=== PATIENT | female | born 1990 | race Caucasian/White ===

== ENCOUNTER 2021-06-07 09:58 | Outpatient (CLI) | payer OTHER, SELFPAY ==
[2021-06-07 10:50] LABS: Vitamin D,25 Hydroxy 22.2 ng/mL
[2021-06-07 10:56] LABS: T4 Free Direct 1.01 ng/dL (0.76-1.46); Thyroid Stim Hormone (TSH) 1.59 uIU/mL (0.358-3.74)
[2021-06-09 15:00] LABS: HPV APTIMA, High Risk Negative (Negative)
== END 2021-06-07 23:59 | disposition short-term general hospital (02) ==
PROVIDERS: PCP Nurse Practitioner Family; Referring Provider Nurse Practitioner Women's Health; Visit Provider Nurse Practitioner Women's Health
DX: Z13.29 Encounter for screening for other suspected endocrine disorder (principal); R63.5 Abnormal weight gain; L65.9 Nonscarring hair loss, unspecified; Z78.0 Asymptomatic menopausal state
CPT/HCPCS: 36415; 82306; 84439; 84443; 87624; 88175; G0145

== ENCOUNTER 2024-06-07 23:19 | Emergency (ER) | payer SELFPAY ==
[2024-06-07 23:21] VITALS: BP 120/73; PULSE 77; RESP 18; TEMP 36.3; O2SAT 96; BMI 37.0
--- NOTE | 2024-06-07 23:56 | ED.VIS.GI ---
HPI HPI - GI History of Present Illness Chief Complaint: Abd Pain Informant: patient Narrative Narrative: 33-year-old female awoke with severe upper abdominal pain, seems centered in the epigastrium, but radiating around her abdomen into her back bilaterally as well. Has been colicky. Associated with some belching but no nausea or vomiting. Almost makes it hard to take a breath because the pain was so severe although it let up on the way here and now it is severe again. She tried taking some Tums but it did not help anything, she has had some reflux in the past and some trouble swallowing and is scheduled for endoscopy at some point in the near future, but states she has never had discomfort like this before. She has had prior C-sections no other abdominal surgeries still has her gallbladder. No alcohol tonight, she states she does not drink. [facility] [place] Medical History Anemia Depression Dysphagia Seasonal allergies Anxiety Home Medications ?Medication ?Instructions ?Recorded ?Last Taken ?Type cetirizine 10 mg capsule (Zyrtec) 10 mg PO DAILY PRN allergies 06/07/21 Unknown History fluticasone propionate 50 1 spray intranasal DAILY PRN 06/07/21 Unknown History mcg/actuation nasal allergy symptoms spray,suspension multivitamin (Daily Multi-Vitamin 1 tab PO DAILY 06/07/24 Unknown History tablet) omeprazole 20 mg capsule,delayed 20 mg PO BID 06/07/24 Unknown History release Allergy/AdvReac Type Severity Reaction Status Date / Time nickel Allergy Other Verified 06/07/24 23:24 Family History (Updated 06/07/21 @ 09:34 by Dede Markham) Mother Hypertension Grandmother Thyroid disorder Diabetes Surgical History S/P Social History household members: spouse and children number of children: 2 current occupational status: employed current occupation: [employer] Smoking Status: Former smoker alcohol intake: never substance use type: does not use what type of physical activity do you participate in: walking and bicycling frequency: 3-4 times per week seatbelt use: always do you feel safe at home: Yes additional social history: - Tung ROS ROS ED Constitutional Constitutional ED: Denies chills or fever(s) Eyes Eyes: Denies change in vision or diplopia ENT ENT ED: Denies rhinorrhea or sore throat Cardiovascular Cardiovascular: Denies chest pain or palpitations Respiratory/Chest Respiratory/Chest: Denies cough or dyspnea Gastrointestinal Gastrointestinal: Reports abdominal pain; Denies diarrhea, melena, nausea or vomiting Genitourinary Genitourinary ED: Denies dysuria or hematuria Musculoskeletal Musculoskeletal: Reports back pain; Denies neck pain Integumentary Denies abscess or rash Neurologic Neurologic: Denies headache(s), paresthesias or weakness EXAM Physical Exam Const Vital Signs: 06/07/24 23:21 Temperature 97.3 F L Temperature Source Oral Pulse Rate 77 Respiratory Rate 18 Blood Pressure 120/73 Blood Pressure Mean 88 Pulse Ox 96 Oxygen Delivery Method Room Air Positive well nourished and well developed General Appearance ED: well developed and NAD HEENT Reports moist mucous membranes normocephalic and atraumatic Eyes PERRL and EOMs intact bilaterally Neck full ROM and supple Resp normal respiratory effort and clear to auscultation bilaterally Cardio regular rate, regular rhythm and no murmurs GI non-distended GI Narrative: Tender across upper abdomen without guarding or rebound or pulsatile mass. Normal inspection. Auscultation: normoactive bowel sounds Palpation: soft Back/Spine no CVA tenderness General Back: other FROM Extremity normal to inspection General Extremety ED: Negative for edema, pulses abnormal or tenderness General Extremity: Negative for edema or pulses abnormal Neuro oriented x3, CN's II-XII intact bilaterally, no sensory deficits noted and gait normal Sensorium / Orientation: awake and alert Motor Exam: strength 5/5 throughout Psych Mood & Affect: anxious Skin no rashes or lesions noted and no wounds MDM MDM MDM Narrative Medical decision making narrative: Given the patient's symptoms, and the fact that she has never had pain like this before but has been having upper GI issues that have improved after taking daily omeprazole, I am suspicious this could be biliary colic. 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 Therefore she was given Zofran, morphine, Toradol, after which she is feeling much better, sent labs which are noted and unremarkable including a negative ruling out ectopic, and I did a bedside ultrasound of the gallbladder. Her sonographic Carrizales's negative, I see 1 area that could be a shadowing stone versus polyp, but it is not in the neck of the gallbladder, and the gallbladder wall is 0.2 cm within normal limits. This is inconsistent with acute cholecystitis, as are her labs. However since I am not able to say definitively, I sent her for CT of the abdomen/pelvis with IV contrast. I reviewed the images and report which I agree with. There is no radiographic signs of acute cholecystitis/pericholecystic fluid, and although it is not sensitive for gallstones, no calcified gallstones were seen. On reevaluation the patient is asymptomatic and doing very well. Therefore I do not think she has acute cholecystitis, it is possible she has biliary colic, it is also possible this is all upper GI in nature. Luckily no sign of a perforation of stomach or intestine on the CT, so at this time I think she is stable for discharge home and I am ordering her an outpatient ultrasound with the results to be sent to her PCP and the patient advised to follow-up afterwards for reevaluation and referral if needed. In the meantime, I am advising her with regards to diet without fat to hopefully avoid further episodes if biliary in nature. She is comfortable with that plan. Lab Data Attestation: I reviewed the patient's lab results. Labs: Laboratory Results - last 24 hr 06/08/24 06/08/24 00:03 00:09 WBC 10.2 RBC 4.63 Hgb 13.9 Hct 39.0 MCV 84.2 MCH 30.0 MCHC 35.6 RDW Std Deviation 36.1 RDW Coeff of Tangela 12.0 Plt Count 215 MPV 10.1 Immature Gran % (Auto) 0.400 Neut % (Auto) 58.9 Lymph % (Auto) 30.4 [place] % (Auto) 6.4 Eos % (Auto) 3.4 Baso % (Auto) 0.5 Absolute Neuts (auto) 6.0 Absolute Lymphs (auto) 3.11 Nucleated RBC % 0 Sodium 139 Potassium 3.8 Chloride 107 Carbon Dioxide 25.0 Anion Gap 8 BUN 12 Creatinine 0.80 Estim Creat Clear Calc 107.53 Est GFR (MDRD) Af Amer 104 Est GFR (MDRD) Non-Af 86 BUN/Creatinine Ratio 14.9 Glucose 125 H Calcium 9.0 Total Bilirubin 0.30 AST 37 ALT 34 Alkaline Phosphatase 77 Total Protein 7.3 Albumin 3.5 Globulin 3.8 Albumin/Globulin Ratio 0.9 Lipase 51 Serum , Qual NEGATIVE Urine Color Yellow Urine Clarity Sl. Cloudy Urine pH 7.0 Ur Specific [place] 1.015 Urine Protein Negative Urine Glucose (UA) Normal Urine Ketones Negative Urine Occult Blood 150 H Urine Nitrite Negative Urine Bilirubin Negative Urine Urobilinogen Normal Ur Leukocyte Esterase Negative Urine RBC 5-10 SEEN Urine WBC 0 SEEN Ur Squamous Epith Cells 10-25 SEEN Amorphous Sediment 1+ Urine Bacteria 2+ Urine Mucus RARE Radiography Diagnostic Testing: Clinical Impression(s) from Imaging Studies Abdomen/Pelvis CT 06/08/24 00:50 IMPRESSION: 1. No acute intra-abdominal process identified. 2. Subtle tiny hypodensity within the right hepatic lobe measures 3 mm, too small to accurately characterize, likely representing a tiny cyst. 3. No calcifications or obstructive uropathy involving the bilateral collecting systems. 4. Follicular changes suspected of the bilateral ovaries. 5. No bowel obstruction. Appendix is negative. 6. Additional findings, as detailed above One or more dose reduction techniques were used (e.g., Automated exposure control, adjustment of the mA and/or kV according to patient size, use of iterative reconstruction technique). Reading [facility] Dis[facility] Triage Chief Complaint: Abd Pain ED Provider: Sahil Lucas Dx/Rx/DC Orders Clinical Impression: Acute upper abdominal pain Instructions: ED Abdominal Pain Gallstone Poss Prescriptions: No Action Zyrtec 10 mg capsule 10 mg PO DAILY PRN (Reason: allergies) fluticasone propionate 50 mcg/actuation spray,suspension 1 spray intranasal DAILY PRN (Reason: allergy symptoms) Rx Instructions: administer into each nostril omeprazole 20 mg capsule,delayed release(DR/EC) 20 mg PO BID multivitamin [Daily Multi-Vitamin] Tablet 1 tab PO DAILY Other Ambulatory Orders: Gallbladder (Routine) Timeframe: 1 Week [place] [facility] [place] [facility] Ordered By: Dr. Sahil Lucas Primary Care Provider: DIMAS ORTA Referrals: DIMAS ORTA CRNP [Primary Care Provider] - (after u/s obtained) Print Language: Irish Disposition Disposition: Home, Self Care
[2024-06-07] MEDS: Ondansetron 4 MG/2 ML Vial IV (23:59)
[2024-06-08] MEDS: Ketorolac 30 MG/ML Syringe IV
[2024-06-08] MEDS: Morphine 4 MG/ML Syringe IV
[2024-06-08 00:15] LABS: Absolute Lymphocyte Count 3.11 X10^3/uL (0.83-4.51); Basophil# 0.05 X10^3/uL; Basophil% 0.5 % (0-1); Eosinophil# 0.35 X10^3/uL; Eosinophils% 3.4 % (0-5); Hemoglobin 13.9 g/dL (12.0-15.0); Lymphocyte # 3.11 X10^3/ul (0.83-4.51); Lymphocyte % 30.4 % (19-41); Mean Corp Hgb Conc 35.6 g/dL (32-36); Mean Corpuscular Volume 84.2 fL (81-99); Mean Platelet Vol. 10.1 fl (6.2-12.0); Monocyte# 0.65 X10^3/uL; Monocyte% 6.4 % (0-10); NRBC Flagged by Analyzer 0 % (0-5); Neutrophil # 6.03 X10^3/uL (2.7-7.7); Neutrophil % 58.9 % (47-70); Platelet Count 215 K/mm3 (150-450); RBC Distribution Width SD 36.1 fl (35.1-43.9); Red Blood Count 4.63 M/mm3 (4.2-5.4); White Blood Count 10.2 K/mm3 (4.4-11.0)
[2024-06-08 00:19] LABS: White Blood Cells 0 SEEN /hpf (0-5)
[2024-06-08 00:25] LABS: Color, Urine Yellow (Yellow); Glucose, Dipstick Normal (Normal); Ketone-Dipstick Negative (Negative); Leukocyte Esterase-Dipstick Negative /ul (Negative); Nitrite-Dipstick Negative (Negative); Occult Blood-Urine 150 /ul (Negative); Protein-Dipstick Negative (Negative); Specific Gravity, Urine 1.015 (1.002-1.030); Urine Bilirubin Dipstick Negative (Negative); Urine Clarity Sl. Cloudy (Clear); Urine Urobilinogen Normal (Normal)
[2024-06-08 00:33] LABS: Internal QC Validated? YES +Cl - CLEAR BKGD; Pregnancy, Serum, hCG Quali. NEGATIVE Negative
[2024-06-08 00:46] LABS: ALB/GLOB Ratio 0.9 RATIO (0.9-2.4); AST(SGOT) 37 U/L (15-37); Alanine Aminotransfer ALT/SGPT 34 U/L (13-56); Albumin, Serum 3.5 g/dL (3.2-5.0); Alkaline Phosphatase 77 U/L (45-117); Anion Gap 8 (5-15); BUN 12 mg/dL (7-18); BUN/Creat Ratio 14.9 RATIO (10-20); Chloride 107 mmol/L (98-107); EST Glomerular Filtration Rate 86 mL/min (>60); Est Glom Filt Rate - Afr Amer 104 mL/min (>60); Estimated Creatinine Clearance 107.53 ml/min; Globulin 3.8 g/dL (2.2-4.2); Glucose 125 mg/dL (74-106); Lipase 51 U/L (13-75); Potassium 3.8 mmol/L (3.5-5.1); Protein, Total 7.3 g/dL (6.4-8.2); Sodium Level 139 mmol/L (136-145)
--- NOTE | 2024-06-08 00:50 | CT_ITS ---
PROCEDURE: ABDOMEN/PELVIS W IV CONT ONLY REASON FOR EXAM: Upper abdominal pain. TECHNIQUE: Axial CT images of the abdomen and pelvis was performed with IV contrast enhancement. Sagittal and coronal reconstructed images were performed for better visualization of the horizontal structures. 98 mL of Isovue-300 was utilized. COMPARISON: None. FINDINGS: Lung bases: Trace atelectasis within the left lung base. No hiatal hernia. Moderate amounts of debris seen within the stomach. Liver: Subtle tiny hypodensity within the right hepatic lobe measures 3 mm, too small to accurately characterize likely representing a tiny cyst. No enhancing masses are identified. Gallbladder: Moderately distended gallbladder. No calcified gallstones. No pericholecystic inflammation. Spleen: Homogeneous enhancement. No splenomegaly. Pancreas: Unremarkable. Adrenals: No adrenal masses are identified. Kidneys: Kidneys enhance symmetrically. No calcifications or obstructive uropathy involving the bilateral collecting systems. Bladder: Decompressed. No bladder calculi are seen. Reproductive Organs: Uterus is slightly lobulated. Follicular changes suspected of the bilateral ovaries . Bowel: No bowel obstruction is identified. Moderate amounts of fecal retention. No pericolonic inflammatory changes. Appendix: Normal. Lymph nodes: No suspicious lymph node enlargement. Vasculature: Major vascular structures are unremarkable. Peritoneum / Retroperitoneum: No ascites. No free air. Bones: Osseous structures about the abdomen and pelvis are intact. CT/Abdomen/Pelvis W IV Cont ONLY IMPRESSION: 1. No acute intra-abdominal process identified. 2. Subtle tiny hypodensity within the right hepatic lobe measures 3 mm, too sma ll to accurately characterize, likely representing a tiny cyst. 3. No calcifications or obstructive uropathy involving the bilateral collecting systems. 4. Follicular changes suspected of the bilateral ovaries. 5. No bowel obstruction. Appendix is negative. 6. Additional findings, as detailed above One or more dose reduction techniques were used (e.g., Automated exposure contr ol, adjustment of the mA and/or kV according to patient size, use of iterative reconstruction technique). Reading Location: [facility]
[2024-06-08 00:58] LABS: Amorphous Sediment 1+; Bacteria 2+ /hpf (None Seen); Mucous, Urine RARE /hpf (<or=2+); Red Blood Cells-Urine 5-10 SEEN /hpf (0-5); Squamous Epithelial Cells - UA 10-25 SEEN /hpf (5-10)
[2024-06-08 01:53] VITALS: BP 129/66; PULSE 100; RESP 18; TEMP 36.6; O2SAT 98
== END 2024-06-08 01:57 | disposition home or self-care (01) ==
PROVIDERS: Emergency Provider Emergency Medicine; PCP Nurse Practitioner Adult Health; Visit Provider Emergency Medicine
DX: R10.11 Right upper quadrant pain (principal); R10.12 Left upper quadrant pain; Z87.891 Personal history of nicotine dependence
CPT/HCPCS: 74177; 80053; 81001; 83690; 84703; 85025; 96374; 96375; 99285; Q9967; A4216; J2405

== ENCOUNTER 2024-07-16 14:04 | Day surgery (SDC) | payer OTHER, SELFPAY ==
[2024-07-16] VITALS (8 sets, daily range): BP systolic 111–129; BP diastolic 73–84; PULSE 89–98; RESP 16; TEMP 36.2–36.8; O2SAT 95–100; BMI 36.3
[2024-07-16 15:01] LABS: Internal QC Validated? YES +Cl - CLEAR BKGD; Pregnancy, Urine Negative Negative
--- NOTE | 2024-07-16 15:15 | EGD_PTH ---
PATIENT: ANDREE MURDOCK LOC: EN U#:[id number] AGE/SX: 33/F ROOM: RE07/16/[address]: Dr. Garry Mensah DO : 1990 BED: DIS: 07/16/2024 SPEC #: [id number] RECD: 07/17/24 11:15 STATUS: CLARY MOLLY #: [id number] CALLIE: 07/16/24 15:[address]: Garry Mensah DEPT: SURGICAL PATHOLOGY RECD BY: Rakesh Reyez ENTERED: 07/17/24 11:15 SP TYPE: EGD BIOPSY OT DR: MAVIS LERNER Tissues: A - Esophagus, NOS B - Esophagus, NOS C - Gastric mucous membrane Procedures: Surgery Specimen Level IV HEADER OPERATION: EGD with biopsy and dilatation PRE-OP DIAGNOSIS: Dysphagia TISSUE SUBMITTED: A- Distal esophagus biopsy, B- Random esophagus biopsy, C- Gastric body biopsy MICROSCOPIC DIAGNOSIS A: DISTAL ESOPHAGUS, BIOPSY: * Squamous mucosa with reactive changes. * Columnar mucosa negative for goblet cell metaplasia. B: RANDOM ESOPHAGUS, BIOPSY: * Squamous mucosa negative for eosinophils. C: STOMACH, BODY, BIOPSY: * Oxyntic mucosa with features of reactive gastropathy. * Negative for Helicobacter-like organisms (H&E). MICROSCOPIC DESCRIPTION Slides are reviewed. GROSS DESCRIPTION A. Received in fixative is one container labeled with the patient's name and designated Distal esophagus biopsy. The specimen consists of two irregular fragments of light aggarwal soft tissue that in aggregate measure 0.7 x 0.2 x 0.2 cm. The specimen is totally submitted in one cassette. B. Received in fixative is one container labeled with the patient's name and designated Random esophagus biopsy. The specimen consists of two irregular fragments of light aggarwal soft tissue that in aggregate measure 1.7 x 0.2 x 0.2 cm. The specimen is totally submitted in one cassette. C. Received in fixative is one container labeled with the patient's name and designated Gastric body biopsy. The specimen consists of multiple irregular fragments of light aggarwal soft tissue that in aggregate measure 1.2 x 0.2 x 0.3 cm. The specimen is totally submitted in one cassette. 07/17/2024 CPT:43122r7
--- NOTE | 2024-07-16 15:29 | PCM.PRE.AN2 ---
ASA Classification* ASA Classification ASA Classification: 2 Assessment & Plan Anesthesia* Anesthesia Assessment Anesthesia Assessment: Discussed sedation and/or anesthesia options, risks, benefits, and alternatives with patient/parents/legal guardian/POA. Questions invited. The patient/parents/legal guardian/POA seems to understand and agrees to proceed with anesthesia plan. Reviewed the physical assessment, medical history, allergy history and patient home medications list prior to surgery/procedure/anesthetic and documented any changes. Performed airway and anesthesia risk assessments. Anesthesia Type Anesthesia Type: General History Source History Obtained from:: Patient and Chart Anesthesia Focused Assessment* Temperature: 98.3 F Pulse Rate: 89 Blood Pressure: 129/73 Respiratory Rate: 16 Pulse Ox: 100 Oxygen Delivery Method: Room Air Airway Assessment Mouth opens: >3 cm Mallampati Score: II Teeth Condition: Intact and Missing (upper right) Neck Range of motion (ROM): Full ROM Focused Labs Anesthesia Preop lab: CBC WBC 10.2 K/mm3 (4.4-11.0) 06/08/24 00:03 06/08/24 RBC 4.63 M/mm3 (4.2-5.4) 06/08/24 00:03 06/08/24 Hgb 13.9 g/dL (12.0-15.0) 06/08/24 00:03 06/08/24 Hct 39.0 % (37-47) 06/08/24 00:03 06/08/24 Plt Count 215 K/mm3 (150-450) 06/08/24 00:03 06/08/24 CHEMISTRY Potassium 3.8 mmol/L (3.5-5.1) 06/08/24 00:03 06/08/24 Sodium 139 mmol/L (136-145) 06/08/24 00:03 06/08/24 BUN 12 mg/dL (7-18) 06/08/24 00:03 06/08/24 Creatinine 0.80 mg/dL (0.55-1.02) 06/08/24 00:03 06/08/24 Glucose 125 mg/dL (74-106) H 06/08/24 00:03 06/08/24 TSH 1.59 uIU/mL (0.358-3.74) 06/07/21 10:05 06/07/21 COAG Urine Test Negative Negative 07/16/24 14:12 07/16/24 Pre-Assessment Diagnosis/Proposed Procedure Planned Operative Procedure(s): EGD Anesthesia History Anesthesia History - 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 When Was Last Pacemaker Check QUESTION #4 FULL TEXT: You/Your Family Experience fever (hyperthermia) with Anesthesia Any additional information?: No Last Oral Intake Last Oral intake: Last Oral Intake NPO since 23:30 07/16/24 14:20 Meds taken in AM with sips of No 07/16/24 14:20 water? Meds patient instructed to take am of surgery Any additional information?: No PONV PONV - competitive intelligence analyst: PONV - competitive intelligence analyst Female Yes 07/11/24 11:42 HX of Motion Sickness No 07/11/24 11:42 HX of N/V After Surgery No 07/11/24 11:42 Non-Smoker Yes 07/11/24 11:42 Duration of Surgery greater No 07/11/24 11:42 than 60 minutes Number of Risk Factors 2 07/11/24 11:42 PONV Score Moderate Risk 07/11/24 11:42 Any additional information?: No Height & Weight Height & Weight: Anesthesia: Height & Weight Height 5 ft 2 in 07/16/24 14:20 Weight: 90 kg 07/16/24 14:20 Body Mass Index (BMI) 36.3 07/16/24 14:20 Respiratory Assessment Respiratory Assessment - competitive intelligence analyst: Respiratory Tract Infection Hx - competitive intelligence analyst Hx Respiratory Tract Infection No 07/11/24 11:42 Any additional information?: No STOP Sleep Apnea STOP Sleep Apnea - competitive intelligence analyst: STOP Sleep Apnea - competitive intelligence analyst Hx Hypertension No 07/11/24 11:42 Hx Sleep Apnea No 07/11/24 11:42 CPAP BIPAP Do you snore loudly (louder No 07/11/24 11:42 than talking or can be heard Do you often feel tired/ No 07/11/24 11:42 fatigued/ sleepy during daytime? Has anyone observed you stop No 07/11/24 11:42 breathing during sleep? STOP Results Negative 07/11/24 11:42 QUESTION #5 FULL TEXT : Do you snore loudly (louder than talking or can be heard through closed doors)? Any additional information?: No Tobacco Use History Tobacco Use History - competitive intelligence analyst: Tobacco Use History - competitive intelligence analyst Tobacco Use Smoking Status Former smoker 07/11/24 11:42 Hx Tobacco Use Yes 07/11/24 11:42 Years Smoking Packs Smoked per Day Smoking Cessation Date was Yes - quit smoking within 15 07/11/24 11:42 within the last 15 years years Hx Smoking Cessation Date Hx Smoking Cessation Counseling Any additional information?: No Hematologic Medial History Hematologic Hx - competitive intelligence analyst: Hematologic Medical Hx - cat sitter Hx of Blood Transfusion No 07/11/24 11:42 Hx of Transfusion in last 3 No 07/11/24 11:42 Months Date of Last Transfusion (if within last 3 months) Ever experience any problems No 07/11/24 11:42 with transfusion(s)? Specify any problems Hx of Preganancy in last 3 No 07/11/24 11:42 Months Nurse Filling Out Transfusion VCHRISTIN 07/11/24 11:42 & Questions: Date: 07/11/24 07/11/24 11:42 Time: 11:42 07/11/24 11:42 Patient unable to answer at this time (ie. confused, unrespo Any additional information?: No /Reproduction History /Reproductive History - competitive intelligence analyst: /Reproductive Hx- competitive intelligence analyst Hx Now No 07/11/24 11:42 Gestational Age (in weeks): EDC: Hx Hx Para Hx Section SAB No 07/11/24 11:42 Any additional information?: No PFSH Medical History Wears glasses Migraine headache Gastric reflux Former smoker Anemia Depression Dysphagia Seasonal allergies Anxiety no medical history Home Medications ?Medication ?Instructions ?Recorded ?Last Taken ?Type cetirizine 10 mg capsule (Zyrtec) 10 mg PO DAILY PRN allergies 06/07/21 07/14/24 History fluticasone propionate 50 1 spray intranasal DAILY PRN 06/07/21 07/15/24 History mcg/actuation nasal allergy symptoms spray,suspension multivitamin (Daily Multi-Vitamin 1 tab PO DAILY 06/07/24 07/15/24 History tablet) omeprazole 20 mg capsule,delayed 20 mg PO BID 06/07/24 07/15/24 History release Allergy/AdvReac Type Severity Reaction Status Date / Time nickel Allergy Other Verified 07/16/24 14:19 Family History Mother Hypertension Grandmother Thyroid disorder Diabetes Surgical History S/P Social History household members: spouse and children number of children: 2 current occupational status: employed current occupation: [employer] Smoking Status: Former smoker alcohol intake: never substance use type: does not use what type of physical activity do you participate in: walking and bicycling frequency: 3-4 times per week seatbelt use: always do you feel safe at home: Yes additional social history: - Tung Review of Systems (Anesthesia) ROS Narrative System reviewed and no additional complaints, except as documented. Physical Exam Const alert, oriented x3 and average body habitus Resp normal respiratory effort, normal air movement and clear to auscultation bilaterally Cardio regular rate, regular rhythm, no murmurs and diaphoretic
--- NOTE | 2024-07-16 16:05 | PCM.HP.STD ---
HPI - General General Date of Admission: 07/16/24 Date of Service: 07/16/24 Chief Complaint: dysphagia HPI Narrative ANDREE MURDOCK, is a 33 F who presents with difficulty swallowing Details: Pt has had issues with swallowing and feelings of globus sensation since the end of March 2024. It started after after she vomited several time for a few days in a row. She thought it might've been due to allergies but was evaluated by ENT who did not see anything on tracheoscopy. She has lost about 10 lbs since this started as she is not able to eat much. She is eating softer foods like mash potatoes. She has even stopped smoking for the past 14 days as she felt like it was making it much worse. She is unsure if it is just anxiety or if something is wrong with her esophagus. She has been on 20 mg omeprazole for a about a week now and has noticed minor improvements. She went to [facility] ED and had a normal work up. Her mother and grandmother have both needed esophageal dilation in the past. She has never had an EGD. Coding [facility] Medical History (Updated 07/16/24 @ 16:[address] Castañeda Friend, DO) Wears glasses Migraine headache Gastric reflux Former smoker Anemia Depression Dysphagia Seasonal allergies Anxiety Medical History no medical history Home Medications ?Medication ?Instructions ?Recorded ?Last Taken ?Type cetirizine 10 mg capsule (Zyrtec) 10 mg PO DAILY PRN allergies 06/07/21 07/14/24 History fluticasone propionate 50 1 spray intranasal DAILY PRN 06/07/21 07/15/24 History mcg/actuation nasal allergy symptoms spray,suspension multivitamin (Daily Multi-Vitamin 1 tab PO DAILY 06/07/24 07/15/24 History tablet) omeprazole 20 mg capsule,delayed 20 mg PO BID 06/07/24 07/15/24 History release Allergy/AdvReac Type Severity Reaction Status Date / Time nickel Allergy Other Verified 07/16/24 14:19 Family History Mother Hypertension Grandmother Thyroid disorder Diabetes Surgical History S/P Social History household members: spouse and children number of children: 2 current occupational status: employed current occupation: [employer] Smoking Status: Former smoker alcohol intake: never substance use type: does not use what type of physical activity do you participate in: walking and bicycling frequency: 3-4 times per week seatbelt use: always do you feel safe at home: Yes additional social history: - Tung ROS Constitutional Constitutional: Denies fatigue, fever(s), poor appetite, weight gain or weight loss Gastrointestinal Gastrointestinal: Denies belching, bloating, change in bowel habits, change in stool character, chewing difficulty, coffee ground emesis, constipation, cramping, diarrhea, dyspepsia, dysphagia, early satiety, excessive flatus, fecal incontinence, heartburn, hematemesis, hematochezia, hemorrhoids, loose stools, melena, nausea, odynophagia, rectal bleeding, tenesmus, vomiting or weight changes Vital Signs Vital Signs Vital Signs: 07/16/24 14:20 07/16/24 14:20 07/16/24 15:44 Temperature 98.3 F 98.3 F Temperature Source Temporal Pulse Rate 89 89 Respiratory Rate 16 16 Respiratory Pattern Normal Blood Pressure 129/73 H 129/73 H Blood Pressure Mean 91 Blood Pressure Source Monitor Blood Pressure Position Semi-Fowlers Blood Pressure Location Left Arm Pulse Ox 100 100 Oxygen Delivery Method Room Air Room Air Weight Weight: 198 lb 6.656 oz Body Mass Index (BMI) 36.3 Physical Exam Const alert, oriented x3 and average body habitus Resp normal respiratory effort, normal air movement and clear to auscultation bilaterally Cardio regular rate, regular rhythm, no murmurs and diaphoretic Results Lab / Micro Data Labs: Laboratory Results - last 24 hr 07/16/24 14:12: Urine Test Negative Assessment & Plan Assessment/Plan (1) Dysphagia: PLAN: Assessment and Plan Assessment and Plan (1) Dysphagia: Plan: This is a 33 yo female pt here today for evaluation of difficulty swallowing and globus sensation for a few weeks now. She has had a 10 lbs weight loss during this time due to not being able to eat regularly. She has anxiety and feels this may be a component. She will undergo EGD to assess her upper GI tract for esophageal stenosis, EOE or dysmotility. She will increase omeprazole to 20 mg twice a day. -EGD with dilation -Omeprazole 20 mg BID -f/u after procedure
--- NOTE | 2024-07-16 16:34 | PCM.POST.ANE ---
Anesthesia: Postop Eval I Current Vital Signs Temperature: 97.3 F Pulse Rate: 94 Blood Pressure: 112/76 Respiratory Rate: 16 Pulse Ox: 96 Oxygen Delivery Method: Room Air Assessment Airway patent: Yes Spontaneous unlabored respirations: Yes Mental status: Asleep nausea: No Vomiting: No Anesthesia Complication: No Fluid Hydration Crystalloid volume administer (ml): 30 Total IV fluid infused: 30 Progress Note Anesthesia document: Postop Eval 1 completed: Yes
--- NOTE | 2024-07-16 16:40 | OP.EGD_ITS ---
Patient Name: Danyelle Shankar Procedure Date: 07/16/2024 4:09 PM Date of : 1990 Age: 33 Procedure: Upper GI endoscopy Indications: Dysphagia Providers: Garry Mensah DO Referring MD: Marjorie Martinez Medicines: Monitored Anesthesia Care Patient Profile: This is a 33 year old female. Refer to note in patient chart for documentation of history and physical. Patient has symptoms of acute epigastric abdominal pain, acute dysphagia and dysphagia with solids. Complications: No immediate complications. Procedure: Pre-Anesthesia Assessment: - Prior to the procedure, a History and Physical was performed, and patient medications and allergies were reviewed. The patient is competent. The risks and benefits of the procedure and the sedation options and risks were discussed with the patient. All questions were answered and informed consent was obtained. Patient identification and proposed procedure were verified by the physician in the pre-procedure area. Mental Status Examination: alert and oriented. Airway Examination: normal oropharyngeal airway and neck mobility. Respiratory Examination: clear to auscultation. CV Examination: normal. Prophylactic Antibiotics: The patient does not require prophylactic antibiotics. Prior Anticoagulants: The patient has taken no anticoagulant or antiplatelet agents except for NSAID medication. ASA Grade Assessment: II - A patient with mild systemic disease. After reviewing the risks and benefits, the patient was deemed in satisfactory condition to undergo the procedure. The anesthesia plan was to use monitored anesthesia care (MAC). Immediately prior to administration of medications, the patient was re-assessed for adequacy to receive sedatives. The heart rate, respiratory rate, oxygen saturations, blood pressure, adequacy of pulmonary ventilation, and response to care were monitored throughout the procedure. The physical status of the patient was re-assessed after the procedure. After obtaining informed consent, the endoscope was passed under direct vision. Throughout the procedure, the patient's blood pressure, pulse, and oxygen saturations were monitored continuously. The gastroscope was introduced through the mouth, and advanced to the second part of duodenum. The upper GI endoscopy was accomplished without difficulty. The patient tolerated the procedure well. Scope In: 4:19:57 PM Scope Out: 4:26:15 PM Total Procedure Duration Time 0 hours 6 minutes 18 seconds Findings: Mucosal changes including longitudinal furrows and small-caliber esophagus were found in the upper third of the esophagus. Biopsies were obtained from the proximal and distal esophagus with cold forceps for histology of suspected eosinophilic esophagitis. A guidewire was placed and the scope was withdrawn. Dilation was performed with a Savary dilator with no resistance at 54 Fr. The dilation site was examined and showed moderate mucosal disruption. Localized moderate inflammation characterized by erosions and erythema was found in the gastric body. Biopsies were taken with a cold forceps for histology. Verification of patient identification for the specimen was done. Estimated blood loss was minimal. Biopsies were taken with a cold forceps for Helicobacter pylori testing. Verification of patient identification for the specimen was done. Estimated blood loss was minimal. A benign-appearing, intrinsic moderate stenosis was found at the pylorus. This was traversed. The second portion of the duodenum was normal. The Z-line was irregular and was found 39 cm from the incisors. Biopsies were taken with a cold forceps for histology. Verification of patient identification for the specimen was done. Estimated blood loss was minimal. Impression: - Esophageal mucosal changes suggestive of eosinophilic esophagitis. Dilated. - Acute gastritis. Biopsied. - Gastric stenosis was found at the pylorus. - Normal second portion of the duodenum. - Biopsies were taken with a cold forceps for evaluation of eosinophilic esophagitis. Recommendation: - Discharge patient to home. - Resume previous diet. - Continue present medications. - Await pathology results. Procedure Code(s): --- Professional --- 16926, Esophagogastroduodenoscopy, flexible, transoral; with insertion of guide wire followed by passage of dilator(s) through esophagus over guide wire 23042, 59,51, Esophagogastroduodenoscopy, flexible, transoral; with biopsy, single or multiple CPT copyright 2021 [employer]. All rights reserved. The codes documented in this report are preliminary and upon pit crew support worker review may be revised to meet current compliance requirements. Garry Mensah DO 07/16/2024 4:40:17 PM This report has been signed electronically. Number of Addenda: 0 Note Initiated On: 07/16/2024 4:09 PM
--- NOTE | 2024-07-16 16:41 | OP.CCLET_ITS ---
07/16/2024 Marjorie Martinez Re : Upper GI endoscopy procedure for Danyelle Shankar Dear Jennifer This procedure was performed on Tuesday, July 16, 2024. My impressions and recommendations are as follows: Impressions : - Esophageal mucosal changes suggestive of eosinophilic esophagitis. Dilated. - Acute gastritis. Biopsied. - Gastric stenosis was found at the pylorus. - Normal second portion of the duodenum. - Biopsies were taken with a cold forceps for evaluation of eosinophilic esophagitis. Recommendations : - Discharge patient to home. - Resume previous diet. - Continue present medications. - Await pathology results. My findings are described in the full procedure note, which is enclosed. If I can be of further assistance, please feel free to contact me at . Sincerely, Garry Mensah, 07/16/2024 4:40:17 PM This report has been signed electronically.
--- NOTE | 2024-07-16 17:11 | PCM.POSTANE2 ---
Anesthesia Postop Eval I Sum Postop Eval Completion status Anesthesia document: Postop Eval 1 completed: Yes Anesthesia Postop Eval I Summary Anesthesia Postop Eval I Summary: Anesthesia Postop Eval I: Assessment Summary Airway patent Yes 07/16/24 16:34 [email or web address] Spontaneous unlabored Yes 07/16/24 16:34 [email or web address] respirations Mental status Asleep 07/16/24 16:34 [email or web address] nausea No 07/16/24 16:34 [email or web address] Vomiting No 07/16/24 16:34 [email or web address] Anesthesia Postop Eval I: Fluid Summary Crystalloid volume administer 30 07/16/24 16:34 [email or web address] (ml) Colloids volume administered ( ml) Blood Product volume administered (ml) Total IV fluid infused 30 07/16/24 16:34 [email or web address] Anesthesia Postop Eval I: Summary Notes Anesthesia Complication No 07/16/24 16:34 [email or web address] Anesthesia Complication Comment: Post-operative progress note Anesthesia: Postop Eval II Evaluation Mental status: Awake Pain Level: 0 nausea: No Vomiting: No Complications Anesthesia Complication: No
== END 2024-07-16 17:28 | disposition home or self-care (01) ==
LOC: EN 14:07 → AC 14:09
PROVIDERS: Anesthesiology; PCP Nurse Practitioner Adult Health; Referring Provider Nurse Practitioner Adult Health; Visit Provider Internal Medicine Gastroenterology
PROC: 0DJ08ZZ Inspection of Upper Intestinal Tract, Via Natural or Artificial Opening Endoscopic (ICD-10-PCS; CPT 43235; principal; 2024-07-16 15:10)
DX: R13.10 Dysphagia, unspecified (principal); K29.00 Acute gastritis without bleeding; Z87.891 Personal history of nicotine dependence; K22.89 Other specified disease of esophagus; K31.89 Other diseases of stomach and duodenum
CPT/HCPCS: 43248; 43239; 81025; 88305; A4216; C1769; J2405

== ENCOUNTER 2025-04-01 17:15 | Emergency (ER) | payer OTHER, SELFPAY ==
[2025-04-01 17:15] VITALS: BP 146/76; PULSE 103; RESP 16; TEMP 36.6; O2SAT 100; BMI 39.9
--- NOTE | 2025-04-01 17:19 | EKG12_ITS ---
Test Reason : CP Blood Pressure : */* mmHG Vent. Rate : 102 BPM Atrial Rate : 102 BPM P-R Int : 128 ms QRS Dur : 90 ms QT Int : 360 ms P-R-T Axes : 66 -40 48 degrees QTcB Int : 469 ms Sinus tachycardia Left axis deviation Nonspecific ST abnormality Abnormal ECG Confirmed by ANGELO WINN, NAILA ([id number]), editor greeting card CLAU SMITH ([id number]) on 04/02/2025 9:24:14 AM Referred By: ANDRES/DANA Confirmed By: NAILA STEPHENS MD
--- NOTE | 2025-04-01 18:05 | ED.VIS.CHEST ---
HPI History of Present Illness Chief Complaint: Chest Pain Narrative Narrative: Patient is a 34-year-old female presenting to the emergency department for multiple complaints including headache that started 5 days ago, chest pain intermittent shortness of breath and palpitations that started 3 days ago. Patient has a past medical history of obesity and migraine headaches. States that initially the headache started as a tension bandlike headache across the front of her head. She states today she then woke up with a headache on the right side which is consistent with her migraines. Denies any fevers, neck pain or stiffness, vision changes, focal numbness or weakness. Denies any head trauma or use of oral anticoagulation. She states that over the past 3 days she has had intermittent midsternal to left-sided chest pain that is also associated with palpitations and shortness of breath. States that none of her symptoms just stated are consistent. None are associated with activity. She states that she was moving her children's bedroom furniture 3 days ago before the symptoms started. Denies history of DVT or PE. Denies recent travel, hospitalizations or surgeries. Denies any calf or leg swelling. Denies any use of hormones therapy or OCPs. No family history of sudden cardiac before the age of 50. States that her sister was born with a heart defect and at 6 months. [facility] Medical History Wears glasses Migraine headache Gastric reflux Former smoker Anemia Depression Dysphagia Seasonal allergies Anxiety Home Medications ?Medication ?Instructions ?Recorded ?Last Taken ?Type cetirizine 10 mg capsule (Zyrtec) 10 mg PO DAILY PRN allergies 06/07/21 07/14/24 History fluticasone propionate 50 1 spray intranasal DAILY PRN 06/07/21 07/15/24 History mcg/actuation nasal allergy symptoms spray,suspension multivitamin (Daily Multi-Vitamin 1 tab PO DAILY 06/07/24 07/15/24 History tablet) omeprazole 20 mg capsule,delayed 20 mg PO BID 06/07/24 07/15/24 History release Allergy/AdvReac Type Severity Reaction Status Date / Time nickel Allergy Other Verified 04/01/25 17:17 Family History Mother Hypertension Grandmother Thyroid disorder Diabetes Surgical History S/P Social History household members: spouse and children number of children: 2 current occupational status: employed current occupation: [employer] Smoking Status: Former smoker alcohol intake: never substance use type: does not use what type of physical activity do you participate in: walking and bicycling frequency: 3-4 times per week seatbelt use: always do you feel safe at home: Yes additional social history: - Tung ROS ROS ED ROS Narrative see HPI EXAM Physical Exam Narrative Exam Narrative: Vital signs: Reviewed General: Alert and orientedx3. No acute distress HEENT: Head is normocephalic and atraumatic, sinuses nontender, pupils equal round and reactive. Nares are patent. Oropharynx and throat exams normal. Neck: Supple without lymphadenopathy nontender. Normal active range of motion of neck. No nuchal rigidity Cardiovascular: Mildly tachycardic rate and regular rhythm, no murmurs. No rubs or gallops. Normal S1 and S2 Respiratory: Clear to auscultation bilaterally. No wheezes, rales, rhonchi Chest: There is reproducible pain to palpation of the left mid sternum. No ecchymosis or erythema. No crepitus. Abdominal: Soft and nontender. Normal bowel sounds. No guarding or rebound. Nonsurgical abdomen Extremities: No lower extremity edema. No tenderness. No bruising. Normal range of motion. Normal sensation. Skin: No rash or redness. Neurological: Cranial nerves II through XII are grossly intact. Normal strength and sensation. Normal cerebellar function The rest of the physical exam is unremarkable Const Vital Signs: 04/01/25 17:15 04/01/25 17:28 04/01/25 19:15 Temperature 98 F Temperature Source Temporal Pulse Rate 103 H 82 Respiratory Rate 16 14 Respiratory Effort Normal Non-Labored Blood Pressure 146/76 H 114/83 H Blood Pressure Mean 99 94 Pulse Ox 100 97 Oxygen Delivery Method Room Air 04/01/25 20:00 04/01/25 21:36 Temperature 98.2 F Temperature Source Pulse Rate 86 81 Respiratory Rate 16 16 Respiratory Effort Blood Pressure 109/55 L 133/78 H Blood Pressure Mean 71 96 Pulse Ox 98 98 Oxygen Delivery Method MDM MDM MDM Narrative Medical decision making narrative: Patient is a 34-year-old female presenting to the emergency department for multiple complaints as can be seen in the HPI. Patient was seen and examined. Vitals are stable. Patient is very mildly tachycardic at 103 on evaluation. Patient resting in bed comfortably no acute distress. EKG shows sinus tachycardia at a rate of 102 with left axis deviation. There is nonspecific ST changes but no elevation or depression. No abnormal T wave inversions. No prior to compare to. Given the patient's mild tachycardia and symptoms we will obtain a D-dimer. Will give migraine cocktail of Toradol, Tylenol, Benadryl and Compazine with fluids for her headache. She describes it as similar to her prior migraines. She had no head trauma. No altered mental status, fevers or nuchal rigidity. I do not think this is meningitis or encephalitis. She had no trauma to the head I do not suspect a bleed. CBC with no leukocytosis and a normal hemoglobin. BMP with no significant abnormalities. Troponin reflex within normal limits. TSH and magnesium within normal limits. Urine negative. D-dimer is very mildly elevated at 0.50. Therefore we will proceed with CTA imaging to rule out pulmonary embolism. CTA shows no acute abnormalities. No evidence of pulmonary embolism. Cholelithiasis without signs of acute cholecystitis. Patient was reevaluated. She states that the medications have completely resolved her headache. Her and significant other at bedside were updated on the negative workup in terms of her chest pain, shortness of breath and palpitations. She was instructed to follow-up with her primary care doctor to discuss possible Holter monitor placement if she continues to have the symptoms. Her chest pain I think is due to musculoskeletal given the reproducible nature on exam and did recommend NSAIDs for this. Patient discharged from the Emergency Department. I do not feel that the patient's evaluation reveals any acute reason for admission at this time. I instructed them to either follow-up with their primary care physician or promptly return to the Emergency Department for reevaluation should symptoms worsen or new symptoms develop. I explained what symptoms would indicate the need to return to the emergency department. Shared decision making was used. The patient voiced understanding of the treatment plan and is agreeable with it. Clinical impression Headache Shortness of breath Heart palpitations Chest pain of uncertain etiology History & Record Review Discussion w/independent historian: Patient and Significant other Lab Data Attestation: I reviewed the patient's lab results. Labs: Laboratory Results - last 24 hr 04/01/25 04/01/25 04/01/25 18:17 18:41 20:30 WBC 10.2 RBC 4.53 Hgb 13.5 Hct 39.2 MCV 86.5 MCH 29.8 MCHC 34.4 RDW Std Deviation 37.2 RDW Coeff of Tangela 11.8 Plt Count 232 MPV 9.7 Immature Gran % (Auto) 0.300 Neut % (Auto) 83.1 H Lymph % (Auto) 13.1 L [place] % (Auto) 2.6 Eos % (Auto) 0.6 Baso % (Auto) 0.3 Absolute Neuts (auto) 8.5 H Absolute Lymphs (auto) 1.33 Nucleated RBC % 0 D-Dimer Quant (PE/DVT) 0.50 H Sodium 140 Potassium 3.6 Chloride 104 Carbon Dioxide 23.8 Anion Gap 13 BUN 12 Creatinine 0.78 Estim Creat Clear Calc 109.59 Est GFR (MDRD) Non-Af 100 BUN/Creatinine Ratio 15.6 Glucose 117 H Calcium 9.1 Magnesium 2.1 Troponin T High Sens < 6 Troponin T Hi Sens 2 Hr < 6 TSH 1.340 Urine Test Negative Radiography Diagnostic Testing: Clinical Impression(s) from Imaging Studies Chest CTA 04/01/25 20:01 IMPRESSION: 1. No acute chest CTA abnormality seen. 2. No evidence of pulmonary embolism. 3. Cholelithiasis without signs of acute cholecystitis. Reading Location: [facility] Discharge Plan Triage Chief Complaint: Chest Pain ED Provider: Bonnie Anderson Dx/Rx/DC Orders Clinical Impression: Chest pain of uncertain etiology, Heart palpitations, Shortness of breath, Headache Instructions: Migraine Tension Headaches, ED Chest Pain, Uncertain Cause, ED Heart Palpitations Prescriptions: No Action Zyrtec 10 mg capsule 10 mg PO DAILY PRN (Reason: allergies) fluticasone propionate 50 mcg/actuation spray,suspension 1 spray intranasal DAILY PRN (Reason: allergy symptoms) Rx Instructions: administer into each nostril omeprazole 20 mg capsule,delayed release(DR/EC) 20 mg PO BID multivitamin [Daily Multi-Vitamin] Tablet 1 tab PO DAILY Primary Care Provider: DIMAS ORTA Referrals: DIMAS ORTA CRNP [Primary Care Provider, Family Practice] - As soon as possible Activity Restrictions/Additional Instructions: Your evaluation in the Emergency Department did not reveal any acute reason for admission. However, I want to emphasize that you may be early in the course of a disease process or illness even if it is not present. For this reason you should follow-up within 24 hours for reevaluation with either your primary care physician or if necessary back here in the Emergency Department. You should return to the Emergency Department immediately if your symptoms worsen or new symptoms develop. Print Language: Jordanian Disposition Disposition: Home, Self Care Discharge Date/Time: 04/01/25 21:38
[2025-04-01] MEDS: 0.9% Normal Saline (1000mL) 1,000 ML 1000 ML IV (18:11)
[2025-04-01] MEDS: DiphenhydrAMINE 50 MG/ML Syringe 25 MG IV (18:17)
[2025-04-01 18:28] LABS: Hematocrit 39.2 % (37-47); Hemoglobin 13.5 g/dL (12.0-15.0); Immature Granulocytes Count 0.030 X10^3/uL (0.0-0.0); Mean Corp Hgb Conc 34.4 g/dL (32-36); Mean Corpuscular Volume 86.5 fL (81-99); Mean Platelet Vol. 9.7 fl (6.2-12.0); NRBC Flagged by Analyzer 0 % (0-5); Platelet Count 232 K/mm3 (150-450); RBC Distribution Width CV 11.8 % (11.6-14.6); RBC Distribution Width SD 37.2 fl (35.1-43.9); Red Blood Count 4.53 M/mm3 (4.2-5.4); White Blood Count 10.2 K/mm3 (4.4-11.0)
[2025-04-01 18:56] LABS: Anion Gap 13 (5-15); BUN 12 mg/dL (4-19); BUN/Creat Ratio 15.6 RATIO (10-20); Calcium,Total 9.1 mg/dL (7.6-11.0); Carbon Dioxide 23.8 mmol/L (21.0-32.0); Chloride 104 mmol/L (98-108); Estimated Creatinine Clearance 109.59 ml/min (50-250); Glucose 117 mg/dL (70-99); Magnesium 2.1 mg/dL (1.5-2.2); Potassium 3.6 mmol/L (3.3-5.1); Troponin T High Sensitivity < 6 ng/L (<=14)
[2025-04-01 18:56] LABS: Internal QC Validated? YES +Cl - CLEAR BKGD; Pregnancy, Urine Negative Negative; Record Kit Lot#,Urine Preg 980607
[2025-04-01 19:15] VITALS: BP 114/83; PULSE 82; RESP 14; O2SAT 97
[2025-04-01 19:31] LABS: D-Dimer Quantitative (DVT/PE) 0.50 FEU/ug/m (0.27-0.49)
[2025-04-01 20:00] VITALS: BP 109/55; PULSE 86; RESP 16; O2SAT 98
--- NOTE | 2025-04-01 20:01 | CT_ITS ---
PROCEDURE: CTA CHEST W/WO CONTRAST 04/01/2025 REASON FOR EXAM: ELEVATED DDIMER, CP, SOB TECHNIQUE: Procedure Code: [id number] Modality: CT Procedure: CTA CHEST W/WO CONTRAST Axial CTA images obtained of the chest after the administration of intravenous contrast. MIP reconstructed images were created and reviewed. CONTRAST: Isovue 370 VOLUME: 100 mL One or more dose reduction techniques were used (e.g., Automated exposure control, adjustment of the mA and/or kV according to patient size, use of iterative reconstruction technique). RADIATION DOSE SUMMARY: CTDlvol: 7.12, 15.53 mGy DLP: 528 mGycm COMPARISON: None. FINDINGS: PULMONARY ARTERIES There is no intraluminal filling defect suspicious for PE. AORTA No thoracic aortic aneurysm or dissection. LUNGS The lungs are clear. No focal airspace consolidation. No pulmonary mass. PLEURAL SPACES No pleural effusion. No pneumothorax. HEART No cardiomegaly. No significant pericardial effusion. Coronary artery calcification (CAC) is not present. MEDIASTINUM/HILUM No significant lymphadenopathy. CHEST WALL The chest wall is unremarkable. BONES No focal osseous abnormality or acute fracture. UPPER ABDOMEN Calcified gallstones without CT signs of acute cholecystitis. Hypodense 0.7 cm focus in the right hepatic lobe, possibly a cyst. CT/CTA Chest W/WO Contrast IMPRESSION: 1. No acute chest CTA abnormality seen. 2. No evidence of pulmonary embolism. 3. Cholelithiasis without signs of acute cholecystitis. Reading Location: [id number]
[2025-04-01 21:05] LABS: Troponin T High Sens 2 HR < 6 ng/L (<=14)
[2025-04-01 21:36] VITALS: BP 133/78; PULSE 81; RESP 16; TEMP 36.8; O2SAT 98
== END 2025-04-01 21:38 | disposition home or self-care (01) ==
PROVIDERS: Emergency Provider Student in an Organized Health Care Education/Training Program; PCP Nurse Practitioner Adult Health; Visit Provider Student in an Organized Health Care Education/Training Program
DX: R07.9 Chest pain, unspecified (principal); R00.2 Palpitations; R06.02 Shortness of breath; G43.909 Migraine, unspecified, not intractable, without status migrainosus; E66.9 Obesity, unspecified; Z68.39 Body mass index [BMI] 39.0-39.9, adult; Z87.891 Personal history of nicotine dependence
CPT/HCPCS: 71275; 80048; 81025; 83735; 84443; 84484; 85025; 85379; 93005; 96361; 96374; 96375; 99283; Q9967; A4216